=== PATIENT | female | born 1945 | race Caucasian/White ===

== ENCOUNTER 2016-09-29 13:42 | Outpatient (CLI) | payer MEDICARE, OTHER | END 2016-09-29 13:43 | disposition home or self-care (01) | DX: Z12.31 Encounter for screening mammogram for malignant neoplasm of breast (principal); Z80.3 Family history of malignant neoplasm of breast ==

== ENCOUNTER 2017-09-27 08:29 | Outpatient (CLI) | payer MEDICARE, OTHER ==
[2017-09-27 10:41] LABS: ALBUMIN 3.9 g/dL (3.2-5.5); ALBUMIN/GLOBULIN RATIO 1.3 (1.0-2.2); ALKALINE PHOSPHATASE 64 IU/L (42-121); ALT ALANINE AMINOTRANSFERASE 15 IU/L (10-60); AST ASPARTATE AMINOTRANSFERASE 19 IU/L (10-42); BILIRUBIN,TOTAL 0.6 mg/dL (0.2-1.0); BUN - BLOOD UREA NITROGEN 15 mg/dL (6-20); CARBON DIOXIDE - CO2 28 mmol/L (21-32); CHLORIDE 101 mmol/L (101-111); CHOL/HDL RATIO 2.9 (<4.4); CHOLESTEROL 180 mg/dL; CREATININE 0.6 mg/dL (0.4-1.0); GFR - MDRD 98 (>89); GLUCOSE 110 mg/dL (70-100); HDL CHOLESTEROL 62 mg/dL; LDL CHOLESTEROL,CALCULATED 107 mg/dL; LDL/HDL RATIO 1.7 (<4.4); SODIUM 137 mmol/L (135-145); VLDL CHOLESTEROL 11 mg/dL
== END 2017-09-27 08:30 | disposition home or self-care (01) ==
LOC: LAB.F 08:29
PROVIDERS: ATTEND Internal Medicine
DX: E78.5 Hyperlipidemia, unspecified (principal); J30.2 Other seasonal allergic rhinitis; M81.0 Age-related osteoporosis without current pathological fracture
CPT/HCPCS: 36415; 80053; 80061; 83721; 84443

== ENCOUNTER 2017-11-09 14:41 | Outpatient (CLI) | payer MEDICARE, OTHER ==
--- NOTE | 2017-11-13 16:55 | DEXA Report ---
DEXA: 11/09/2017 CLINICAL INDICATION: Osteoporosis. TECHNIQUE: Dual energy x-ray absorptiometry (DXA) was performed on a [employer] system. Regions measured are the AP spine, femoral neck, and, if needed, forearm. COMPARISON: None. In accordance with the International Society for Clinical Densitometry (ISCD) guidelines, data from previous exams may be reanalyzed using current recommendations and techniques. This is done to allow a more accurate basis for comparison with the current study. FINDINGS Data for the lumbar spine is as follows: REGION BMD (g/cm/cm) T-SCORE Z-SCORE L1 0.782 -2.9 -0.9 L2 0.880 -2.7 -0.7 L3 0.921 -2.3 -0.3 L4 0.940 -2.2 -0.2 L1-L4 0.886 -2.5 -0.4 NOTE: All evaluable vertebrae are used for classification. Data for the hip is as follows: REGION BMD (g/cm/cm) T-SCORE Z-SCORE Neck 0.656 -2.7 -0.7 TOTAL 0.712 -2.4 -0.5 NOTE: The femoral neck or total proximal femur, whichever is lowest, is used for classification. IMPRESSION WHO CLASSIFICATION BASED ON THE INTERNATIONAL REFERENCE STANDARD IS OSTEOPOROSIS. FRACTURE RISK IS HIGH. RECOMMENDATION: Patients with diagnosis of osteoporosis or osteopenia should have regular bone mineral density assessment. For those eligible for Medicare, routine testing is allowed once every 2 years. Testing frequency can be increased for patients who have rapidly progressing disease or for those who are receiving medical therapy to restore bone mass. COMMENT World Health Organization (WHO) definitions for osteoporosis and osteopenia: NORMAL BMD: T-score at 1.0 or higher, fracture risk is low. OSTEOPENIA BMD: T-score between 1.0 and -2.5, fracture risk is increased. OSTEOPOROSIS BMD: T-score at 2.5 or lower, fracture risk high. National Osteoporosis Foundation recommends: 1. Obtain adequate dietary calcium (at least 1200 mg per day) and vitamin D (400 -800 international units per day). 2. Participate, as appropriate, in regular weightbearing and muscle- strengthening exercise. 3. Avoid tobacco use and reduce alcohol and caffeine intake. 4. For more detailed information see the website at www.NOF.org. TD: 11/09/2017 17:41 MTDD
== END 2017-11-09 14:42 | disposition home or self-care (01) ==
LOC: DI 14:41
PROVIDERS: ATTEND Internal Medicine
DX: M81.0 Age-related osteoporosis without current pathological fracture (principal)
CPT/HCPCS: 77080

== ENCOUNTER 2017-11-09 14:45 | Outpatient (CLI) | payer MEDICARE, OTHER ==
--- NOTE | 2017-11-10 14:01 | Mammography Report ---
DIGITAL SCREENING MAMMOGRAM: 11/09/2017 CLINICAL INDICATION: A 71-year-old with family history of breast cancer, history of late childbearing for screening. COMPARISON: 09/2016, 09/2015, 06/2013, 03/2012, 02/2011, 02/2010. TECHNIQUE: Routine CC and MLO projections and bilateral laterally exaggerated craniocaudal views were obtained of the breasts. FINDINGS: Parenchymal tissue within both breasts is heterogeneously dense, which may lower the sensitivity of mammography; however, there are no dominant masses, suspicious microcalcifications, or secondary signs of malignancy. In comparison to the previous studies, there are no significant changes. ASSESSMENT: NO MAMMOGRAPHIC EVIDENCE OF MALIGNANCY. NO SIGNIFICANT INTERVAL CHANGES. RECOMMENDATION: Screening mammography is recommended annually. BIRADS category 1 - negative. STANDARD QUALIFYING STATEMENTS: 1. This examination was reviewed with the aid of Computed-Aided Detection (CAD). 2. A negative or benign imaging report should not delay biopsy if clinically suspicious findings are present. Consider surgical consultation if warranted. More than 5% of cancers are not identified by imaging. 3. Dense breasts may obscure an underlying neoplasm. TD: 11/10/2017 14:00
== END 2017-11-09 14:46 | disposition home or self-care (01) ==
LOC: DI 14:45
PROVIDERS: ATTEND Internal Medicine
DX: Z12.31 Encounter for screening mammogram for malignant neoplasm of breast (principal); Z80.3 Family history of malignant neoplasm of breast
CPT/HCPCS: 77067

== ENCOUNTER 2019-03-11 09:40 | Outpatient (CLI) | payer MEDICARE, OTHER ==
[2019-03-11 17:58] LABS: BUN - BLOOD UREA NITROGEN 16 mg/dL (6-20); CALCIUM 9.2 mg/dL (8.5-10.3); CARBON DIOXIDE - CO2 29 mmol/L (21-32); CHLORIDE 104 mmol/L (101-111); CHOL/HDL RATIO 2.5 (<4.4); CHOLESTEROL 212 mg/dL; CREATININE 0.6 mg/dL (0.4-1.0); GFR - MDRD 97 (>89); GLUCOSE 97 mg/dL (70-100); HDL CHOLESTEROL 86 mg/dL; LDL CHOLESTEROL,CALCULATED 114 mg/dL; LDL/HDL RATIO 1.3 (<4.4); SODIUM 140 mmol/L (135-145); VLDL CHOLESTEROL 12 mg/dL
== END 2019-03-11 09:41 | disposition home or self-care (01) ==
LOC: LAB.S 09:40
PROVIDERS: ATTEND Internal Medicine
DX: Z13.6 Encounter for screening for cardiovascular disorders (principal)
CPT/HCPCS: 36415; 80048; 80061; 83721

== ENCOUNTER 2020-06-19 09:13 | Outpatient (CLI) | payer MEDICARE, OTHER ==
[2020-06-19 15:40] LABS: BASOPHILS % (AUTO) 0.9 %; EOSINOPHILS # (AUTO) 0.1 10^3/uL (0.0-0.7); HGB - HEMOGLOBIN 12.8 g/dL (12.0-16.0); LYMPHOCYTES # (AUTO) 1.6 10^3/uL (1.5-3.5); LYMPHOCYTES % (AUTO) 34.1 %; MEAN CORPUSCULAR HGB CONC 31.7 g/dL (32.0-36.0); MEAN PLATELET VOLUME 10.2 fL (7.9-10.8); MONOCYTES # (AUTO) 0.5 10^3/uL (0.0-1.0); MONOCYTES % (AUTO) 11.6 %; NEUTROPHILS # (AUTO) 2.3 10^3/uL (1.5-6.6); NEUTROPHILS % (AUTO) 50.7 %; PLT - PLATELET COUNT 301 10^3/uL (130-450); RED CELL DISTRIBUTION WIDTH 12.5 % (12.0-15.0); WHITE BLOOD COUNT 4.6 x10^3/uL (4.8-10.8)
[2020-06-19 15:56] LABS: ALBUMIN 4.4 g/dL (3.2-5.5); ALBUMIN/GLOBULIN RATIO 1.5 (1.0-2.2); ALKALINE PHOSPHATASE 63 IU/L (42-121); ALT ALANINE AMINOTRANSFERASE 15 IU/L (10-60); AST ASPARTATE AMINOTRANSFERASE 19 IU/L (10-42); BILIRUBIN,TOTAL 0.8 mg/dL (0.2-1.0); BUN - BLOOD UREA NITROGEN 17 mg/dL (6-20); CALCIUM 9.6 mg/dL (8.5-10.3); CARBON DIOXIDE - CO2 28 mmol/L (21-32); CHLORIDE 102 mmol/L (101-111); CHOL/HDL RATIO 2.4 (<4.4); CHOLESTEROL 207 mg/dL; CREATININE 0.6 mg/dL (0.4-1.0); GLUCOSE 95 mg/dL (70-100); HDL CHOLESTEROL 87 mg/dL; LDL CHOLESTEROL,CALCULATED 108 mg/dL; LDL/HDL RATIO 1.2 (<4.4); SODIUM 139 mmol/L (135-145); TOTAL PROTEIN 7.3 g/dL (6.7-8.2); VLDL CHOLESTEROL 12 mg/dL
[2020-06-19 19:58] LABS: HEMOGLOBIN A1c% 5.4 % (4.27-6.07)
== END 2020-06-19 09:14 | disposition home or self-care (01) ==
LOC: LAB.S 09:13
PROVIDERS: ATTEND Family Medicine
DX: I49.1 Atrial premature depolarization (principal); K21.9 Gastro-esophageal reflux disease without esophagitis; R73.9 Hyperglycemia, unspecified
CPT/HCPCS: 36415; 80053; 80061; 83036; 83721; 84443; 85025

== ENCOUNTER 2020-08-12 13:04 | Outpatient (CLI) | payer MEDICARE, OTHER ==
--- NOTE | 2020-08-13 09:00 | Mammography Report ---
BILATERAL DIGITAL SCREENING MAMMOGRAM 3D/2D WITH EXAGGERATED CC: 08/12/2020 CLINICAL: Routine screening. Comparison is made to exams dated: 11/09/2017 mammogram, 09/29/2016 mammogram, 09/16/2015 mammogram, and 06/17/2013 mammogram - [facility]. The tissue of both breasts is predominantly fat ty. No significant masses, calcifications, or other findings are seen in either breast. There has been no significant interval change. IMPRESSION: NEGATIVE There is no mammographic evidence of malignancy. A 1 year screening mammogram is recommended. This exam was interpreted at Station ID: [id number]. NOTE: For mammograms, a report in lay terms will be sent to the patient. Approximately 15% of breast malignancies will not be visualized mammographically. In the management of a palpable breast mass, a negative mammogram must not discourage biopsy of a clinically suspicious lesion. Electronically Signed By: Cm Louie M.D., jr/gloria:08/12/2020 17:01:35 ACR BI-RADS Category 1: Negative 3341F PARENCHYMAL PATTERN: (F) - The breast(s) demonstrate(s) diffuse fatty replacement. BI-RADS CATEGORY: (1) - 1 RECOMMENDATION: (ANNUAL) - Recommend routine annual screening mammography. [id number] 1 year screening LATERALITY: (B)
== END 2020-08-12 13:05 | disposition home or self-care (01) ==
LOC: DI.S 13:04
PROVIDERS: ATTEND Family Medicine
DX: Z12.31 Encounter for screening mammogram for malignant neoplasm of breast (principal)

== ENCOUNTER 2021-11-10 09:34 | Outpatient (CLI) | payer MEDICARE, OTHER ==
[2021-11-10 15:09] LABS: BASOPHILS % (AUTO) 1.1 %; EOSINOPHILS # (AUTO) 0.1 10^3/uL (0.0-0.7); EOSINOPHILS % (AUTO) 2.4 %; HCT - HEMATOCRIT 36.1 % (37.0-47.0); HGB - HEMOGLOBIN 11.8 g/dL (12.0-16.0); LYMPHOCYTES # (AUTO) 1.1 10^3/uL (1.5-3.5); LYMPHOCYTES % (AUTO) 28.9 %; MEAN CORPUSCULAR HGB CONC 32.7 g/dL (32.0-36.0); MEAN CORPUSCULAR VOLUME 97.8 fL (81.0-99.0); MEAN PLATELET VOLUME 9.9 fL (7.9-10.8); MONOCYTES # (AUTO) 0.4 10^3/uL (0.0-1.0); MONOCYTES % (AUTO) 11.7 %; NEUTROPHILS # (AUTO) 2.1 10^3/uL (1.5-6.6); NEUTROPHILS % (AUTO) 55.9 %; PLT - PLATELET COUNT 307 10^3/uL (130-450); RED BLOOD COUNT 3.69 10^6/uL (4.20-5.40); RED CELL DISTRIBUTION WIDTH 13.2 % (12.0-15.0); WHITE BLOOD COUNT 3.8 x10^3/uL (4.8-10.8)
[2021-11-10 15:42] LABS: ALBUMIN 3.8 g/dL (3.2-5.5); ALBUMIN/GLOBULIN RATIO 1.5 (1.0-2.2); ALKALINE PHOSPHATASE 54 IU/L (42-121); ALT ALANINE AMINOTRANSFERASE 15 IU/L (10-60); AST ASPARTATE AMINOTRANSFERASE 21 IU/L (10-42); BILIRUBIN,TOTAL 0.8 mg/dL (0.2-1.0); BUN - BLOOD UREA NITROGEN 17 mg/dL (6-20); CALCIUM 9.3 mg/dL (8.5-10.3); CARBON DIOXIDE - CO2 30 mmol/L (21-32); CHLORIDE 100 mmol/L (101-111); CHOL/HDL RATIO 2.4 (<4.4); CHOLESTEROL 209 mg/dL; CREATININE 0.7 mg/dL (0.4-1.0); GFR - MDRD 81 (>89); GLUCOSE 96 mg/dL (70-100); HDL CHOLESTEROL 86 mg/dL; LDL CHOLESTEROL,CALCULATED 111 mg/dL; LDL/HDL RATIO 1.3 (<4.4); POTASSIUM 4.2 mmol/L (3.5-5.0); SODIUM 136 mmol/L (135-145); TOTAL PROTEIN 6.4 g/dL (6.7-8.2); TRIGLYCERIDES 60 mg/dL; VLDL CHOLESTEROL 12 mg/dL
[2021-11-10 16:24] LABS: THYROID STIMULATING HORMONE 1.9 uIU/mL (0.34-5.60)
== END 2021-11-10 09:35 | disposition home or self-care (01) ==
LOC: LAB.S 09:34
PROVIDERS: ATTEND Family Medicine
DX: Z00.00 Encounter for general adult medical examination without abnormal findings (principal)
CPT/HCPCS: 36415; 80053; 80061; 83721; 84443; 85025

== ENCOUNTER 2021-11-12 12:47 | Outpatient (CLI) | payer MEDICARE, OTHER ==
[2021-11-12 13:27] LABS: ABSOLUTE RETICS # AUTO 0.043 10^6/uL (0.020-0.110); BASOPHILS % (AUTO) 0.8 %; EOSINOPHILS # (AUTO) 0.1 10^3/uL (0.0-0.7); EOSINOPHILS % (AUTO) 1.8 %; HCT - HEMATOCRIT 37.5 % (37.0-47.0); HGB - HEMOGLOBIN 12.4 g/dL (12.0-16.0); LYMPHOCYTES # (AUTO) 1.4 10^3/uL (1.5-3.5); LYMPHOCYTES % (AUTO) 27.5 %; MEAN CORPUSCULAR HGB CONC 33.1 g/dL (32.0-36.0); MEAN CORPUSCULAR VOLUME 96.9 fL (81.0-99.0); MONOCYTES # (AUTO) 0.6 10^3/uL (0.0-1.0); MONOCYTES % (AUTO) 10.9 %; NEUTROPHILS % (AUTO) 58.8 %; PLT - PLATELET COUNT 293 10^3/uL (130-450); RED BLOOD COUNT 3.87 10^6/uL (4.20-5.40); RED CELL DISTRIBUTION WIDTH 13.1 % (12.0-15.0); WHITE BLOOD COUNT 5.1 x10^3/uL (4.8-10.8)
--- NOTE | 2021-11-12 13:35 | DEXA Report ---
PROCEDURE: Dexa Spine and/or Hip INDICATIONS: POST MENOPAUSAL TECHNIQUE: Dual energy x-ray absorptiometry (DXA) was performed on a [employer]. Regions measur ed are the AP Spine, femoral neck, and if needed forearm. COMPARISON: DEXA, 11/09/2017. FINDINGS: Lumbar Spine: Bone Mineral Density 0.878 g/cm/cm,T score -2.5, osteoporotic. Left Hip: Bone Mineral Density 0.734 g/cm/cm,T score -2.2, osteopenic. Left Femoral Neck: Bone Mineral Density 0.666 g/cm/cm, T score -2.7, osteoporotic. (T score greater or equal to -1.0: NORMAL) (T score from -1.1 to -2.4: OSTEOPENIA) (T score less than or equal to -2.5 to: OSTEOPOROSIS) Impression: Based on WHO criteria, the patient has osteoporosis. Compared with the last exam dated 11/09/2017, the re is no statistically significant change in the patient's bone mineral density. Patients with diagnosis of osteoporosis or osteopenia should have regular bone mineral density assess ment. For those eligible for Medicare, routine testing is allowed once every 2 years. Testing frequ ency can be increased for patients who have rapidly progressing disease or for those who are receivin g medical therapy to restore bone mass. Reviewed by: Michael Henriquez MD on 11/12/2021 1:34 PM PDT Approved by: Michael Henriquez MD on 11/12/2021 1:34 PM PDT Station ID: [id number]
[2021-11-12 14:00] LABS: FERRITIN 7.1 ng/mL (11.0-306.8)
[2021-11-12 14:02] LABS: % IRON SATURATION 28 % (20-50); IRON 132 ug/dL (28-170); TOTAL IRON BINDING CAPACITY 476 ug/dL (250-450); TRANSFERRIN 340 mg/dL (192-382)
[2021-11-12 14:04] LABS: FOLATE 17.1 ng/mL (5.90 - >24.8)
== END 2021-11-12 12:48 | disposition home or self-care (01) ==
LOC: DI 12:47
PROVIDERS: ATTEND Family Medicine
DX: Z78.0 Asymptomatic menopausal state (principal); M81.0 Age-related osteoporosis without current pathological fracture; D64.9 Anemia, unspecified
CPT/HCPCS: 36415; 82607; 82728; 82746; 83540; 84466; 85025; 85045

== ENCOUNTER 2021-11-15 08:00 | Outpatient (CLI) | payer MEDICARE, OTHER | END 2021-11-15 23:59 | disposition home or self-care (01) | LOC: LAB.R 08:00 | PROVIDERS: ATTEND Family Medicine | DX: D64.9 Anemia, unspecified (principal) | CPT/HCPCS: 82270 ==

== ENCOUNTER 2021-11-30 10:59 | Outpatient (CLI) | payer MEDICARE, OTHER ==
--- NOTE | 2021-12-01 13:41 | Mammography Report ---
BILATERAL DIGITAL SCREENING MAMMOGRAM 3D/2D WITH EXAGGERATED CC: 11/30/2021 CLINICAL: Routine screening. Family history of breast cancer. Comparison is made to exams dated: 08/12/2020 mammogram, 11/09/2017 mammogram, 09/29/2016 mammogram, an d 09/16/2015 mammogram - [facility]. The tissue of both breasts is extremely dense, which lowers the sensitivity of mammography. There are benign vascular calcifications in both breasts. No significant masses, calcifications, or other findings are seen in either breast. There has been no significant interval change. IMPRESSION: BENIGN There is no mammographic evidence of malignancy. A 1 year screening mammogram is recommended. This exam was interpreted at Station ID: [id number]. NOTE: For mammograms, a report in lay terms will be sent to the patient. Approximately 15% of breast malignancies will not be visualized mammographically. In the management of a palpable breast mass, a negative mammogram must not discourage biopsy of a clinically suspicious lesion. Electronically Signed By: Kaylen guo/gloria:11/30/2021 17:53:57 ACR BI-RADS Category 2: Benign Finding(s) 3342F PARENCHYMAL PATTERN: (VD) - The breast(s) demonstrate(s) extremely dense parenchyma, limiting the sen sitivity of mammography. BI-RADS CATEGORY: (2) - 2 RECOMMENDATION: (ANNUAL) - Recommend routine annual screening mammography. [id number] 1 year screening LATERALITY: (B)
== END 2021-11-30 11:00 | disposition home or self-care (01) ==
LOC: DI.S 10:59
PROVIDERS: ATTEND Family Medicine
DX: Z12.31 Encounter for screening mammogram for malignant neoplasm of breast (principal); Z80.3 Family history of malignant neoplasm of breast

== ENCOUNTER 2022-11-10 11:30 | Outpatient (CLI) | payer MEDICARE, OTHER | END 2022-11-10 11:45 | disposition home or self-care (01) | LOC: LAB.N 11:30 | PROVIDERS: ATTEND Specialist | DX: R30.0 Dysuria (principal) | CPT/HCPCS: 87086; 87181 ==

== ENCOUNTER 2022-12-20 13:04 | Outpatient (CLI) | payer MEDICARE, OTHER ==
--- NOTE | 2022-12-21 10:07 | Mammography Report ---
BILATERAL DIGITAL SCREENING MAMMOGRAM 3D/2D WITH EXAGGERATED CC: 12/20/2022 CLINICAL: Routine screening. Family history of breast cancer. Comparison is made to exams dated: 11/30/2021 mammogram, 08/12/2020 mammogram, and 11/09/2017 mammogram - [facility]. Both breasts are extremely dense, which lowers the sensitivity of mammography (category d />75% gland ular tissue). There are benign vascular calcifications in both breasts. No significant masses, calcifications, or other findings are seen in either breast. There has been no significant interval change. IMPRESSION: BENIGN There is no mammographic evidence of malignancy. A 1 year screening mammogram is recommended. Based on the Tyrer Cuzick model (a risk assessment model) the patients lifetime risk is 18.3% and he r 10 year risk is 0.0%. According to the ACR, ACS, and NCCN guidelines, an annual breast MRI exam guru ng with mammogram is recommended if the patients lifetime risk is 20% or greater. This exam was interpreted at Station ID: [id number]. NOTE: For mammograms, a report in lay terms will be sent to the patient. Approximately 15% of breast malignancies will not be visualized mammographically. In the management of a palpable breast mass, a negative mammogram must not discourage biopsy of a clinically suspicious lesion. Electronically Signed By: Kaylen guo/gloria:12/20/2022 17:20:02 letter sent: No_Letter ACR BI-RADS Category 2: Benign Finding(s) 3342F PARENCHYMAL PATTERN: (VD) - The breast(s) demonstrate(s) extremely dense parenchyma, limiting the sen sitivity of mammography. BI-RADS CATEGORY: (2) - 2 Mammogram [id number] 1 year screening LATERALITY: (B)
== END 2022-12-20 13:05 | disposition home or self-care (01) ==
LOC: DI.S 13:04
DX: Z12.31 Encounter for screening mammogram for malignant neoplasm of breast (principal); Z80.3 Family history of malignant neoplasm of breast

== ENCOUNTER 2023-03-01 09:23 | Outpatient (CLI) | payer MEDICARE, OTHER | END 2023-03-01 09:24 | disposition home or self-care (01) | LOC: LAB.S 09:23 | PROVIDERS: ATTEND Internal Medicine | DX: Z53.9 Procedure and treatment not carried out, unspecified reason (principal) | CPT/HCPCS: 36415; 80053; 80061; 81001; 81003; 82306; 83036; 83721; 84443; 85025; 86225; 86235; 87086 ==

== ENCOUNTER 2023-03-01 10:24 | Outpatient (CLI) | payer MEDICARE, OTHER | END 2023-03-01 10:25 | disposition short-term general hospital (02) | LOC: EMS 10:24 | DX: R07.9 Chest pain, unspecified (principal); R06.00 Dyspnea, unspecified; R61 Generalized hyperhidrosis; R42 Dizziness and giddiness; R56.9 Unspecified convulsions | CPT/HCPCS: A0425; A0429 ==

== ENCOUNTER 2023-11-26 20:21 | Outpatient (CLI) | payer MEDICARE, OTHER | END 2023-11-26 23:59 | disposition left against medical advice (07) | LOC: EMS 20:21 | DX: J34.89 Other specified disorders of nose and nasal sinuses (principal); R22.0 Localized swelling, mass and lump, head; R06.02 Shortness of breath; Z98.890 Other specified postprocedural states ==

== ENCOUNTER 2023-11-26 21:19 | Emergency (ER) | payer MEDICARE, OTHER ==
--- NOTE | 2023-11-26 22:49 | ED Physician Documentation ---
PD HPI DYSPNEA - Stated complaint Stated Complaint: POST OP SOA - Chief complaint Chief Complaint: Resp - History obtained from History obtained from: Patient, Family - Additional information Additional information: Patient sustained a fall on November 15, causing multiple fractures including mandibular fracture. She underwent surgical repair of the mandibular fracture on November 23. Currently, in her postoperative state, she is not able to open her mouth and is taking nutrition through a Yuen catheter that she places into the cheek of her mouth intermittently (several times per day). She had right n are packing placed intraoperatively due to epistaxis. Her chief complaint and concern is that since 4 PM today, she has had increasing difficulty breathing through her left nare. She has been instructed to not cough or blow her nose. PD PAST MEDICAL HISTORY - Past Medical History Past Medical History: Yes Cardiovascular: Hypertension Musculoskeletal: Osteoporosis, Other Other Past Medical History: R radial fx/dislocation= reduced recently. - Past Surgical History Past Surgical History: Yes Ortho: Other - Present Medications Home Medications: Ambulatory Orders Medication Instructions Recorded Confirmed Acetaminophen 640 mg PO Q6HR 11/27/23 11/27/23 Chlorhexidine [Peridex] 15 ml PO BID 11/27/23 11/27/23 Dorzolamide/Timolol Ophth Soln 1 drops EACHEYE BID 11/27/23 11/27/23 [Cosopt] Ibuprofen [Children's Motrin] 600 mg PO Q6HR 11/27/23 11/27/23 Oxycodone HCl See Rx Instructions .ROUTE .COMPLEX 11/27/23 11/27/23 - Allergies Allergies/Adverse Reactions: Allergies Allergy/AdvReac Type Severity Reaction Status Date / Time Penicillins Allergy Rash Verified 11/26/23 21:33 - Social History Does the pt smoke?: No Smoking Status: Never smoker Does the pt drink ETOH?: No Does the pt have substance abuse?: No - Immunizations Immunizations are current?: Yes - POLST Patient has POLST: No PD ED PE NORMAL - Vitals Vital signs reviewed: Yes - General General: Alert and oriented X 3, No acute distress, Well developed/nourished - HEENT HEENT: Other (moderate facial swelling and mild bruising. right nare has packing in place. left nare partially occluded with thick, dried mucous) Results - Vitals Vitals: Vital Signs - 24 hr 11/26/23 11/27/23 11/27/23 21:25 00:10 01:56 Temperature 36.3 C L Heart Rate 104 H 95 80 Respiratory 20 16 16 Rate Blood Pressure 155/102 H 148/93 H 86/66 L O2 Saturation 96 99 97 11/27/23 11/27/23 11/27/23 02:00 02:05 02:10 Temperature Heart Rate 84 83 79 Respiratory 16 16 16 Rate Blood Pressure 128/77 132/72 H 138/60 H O2 Saturation 97 97 97 11/27/23 11/27/23 02:30 03:00 Temperature Heart Rate 78 79 Respiratory 16 15 Rate Blood Pressure 124/68 120/67 O2 Saturation 96 99 Oxygen O2 Source Room air PD Medical Decision Making - ED course Complexity details: considered differential, d/w patient, d/w family ED course: Under direct (otoscopic) visualization, I removed the mucous plug from the left nare using forceps. She immediately reported feeling she was able to breathe much better through this nare. She has a bottle of oxymetazoline given to her post-operatively which she was to use for epistaxis. After I removed the mucous plug, I note the left nare's mucous membranes appear boggy and thus I had her spray two sprays of the oxymetazoline in the left nare which further improved her breathing through the left nare. She is subsequently d/c home with return precautions reviewed. Departure - Departure Disposition: 01 Home, Self Care Clinical Impression: Dyspnea Qualifiers: Dyspnea type: unspecified Qualified Code(s): R06.00 - Dyspnea, unspecified Condition: Good Instructions: ED Dyspnea Shortness of Breath Comments: After I removed the thick mucus in your left nare, followed by use of your nasal spray, you are indicating that you are now able to breathe adequately through the left nare. You were given 1 liter of normal saline through the IV to help rehydrate. Discharge Date/Time: 11/27/23 03:30
[2023-11-26] MEDS: ACETAMINOPHEN 325 MG TABLET PO STA (23:35)
[2023-11-26] MEDS: SODIUM CHLORIDE 0.9% 1,000 ML IV STA (23:35)
[2023-11-26] MEDS: ACETAMINOPHEN 1,000 MG/100 ML 1,000 MG/100 ML BAG IV STA (23:35)
[2023-11-27] MEDS: SODIUM CHLORIDE 0.9% 1,000 ML IV STA (02:10)
[2023-11-27] MEDS: ONDANSETRON 4 MG/2 ML VIAL IVP STA (02:13)
[2023-11-27 03:33] VITALS: BP 120/67; O2SAT 99
== END 2023-11-27 03:30 | disposition home or self-care (01) ==
LOC: ED 21:19 → UNDOADMOB 23:02 → MS2 23:02 → ED 11-27 03:30
DX: R06.00 Dyspnea, unspecified (principal); I10 Essential (primary) hypertension; Z98.890 Other specified postprocedural states
CPT/HCPCS: 36415; 99283; J0131

== ENCOUNTER 2024-01-31 08:22 | Outpatient (CLI) | payer MEDICARE, OTHER ==
[2024-01-31 21:26] LABS: ESTIMATED AVERAGE GLUCOSE 97 mg/dL (70-100)
[2024-02-01 05:14] LABS: VITAMIN D 25-HYDROXY 65.4 ng/mL (30.0-100.0)
== END 2024-01-31 08:23 | disposition home or self-care (01) ==
LOC: LAB.S 08:22
PROVIDERS: ATTEND Internal Medicine
DX: Z00.00 Encounter for general adult medical examination without abnormal findings (principal); I10 Essential (primary) hypertension; R73.9 Hyperglycemia, unspecified; M81.0 Age-related osteoporosis without current pathological fracture; I73.00 Raynaud's syndrome without gangrene
CPT/HCPCS: 36415; 82306; 83036; 86038

== ENCOUNTER 2024-02-09 08:30 | Outpatient (CLI) | payer MEDICARE, OTHER ==
[2024-02-09 08:41] LABS: EOSINOPHILS # (AUTO) 0.1 10^3/uL (0.0-0.7); EOSINOPHILS % (AUTO) 3.1 %; HCT - HEMATOCRIT 38.4 % (37.0-47.0); LYMPHOCYTES # (AUTO) 1.5 10^3/uL (1.5-3.5); LYMPHOCYTES % (AUTO) 38.8 %; MEAN CORPUSCULAR HEMOGLOBIN 30.6 pg (27.0-31.0); MEAN CORPUSCULAR HGB CONC 31.3 g/dL (32.0-36.0); MONOCYTES # (AUTO) 0.6 10^3/uL (0.0-1.0); MONOCYTES % (AUTO) 14.2 %; NEUTROPHILS # (AUTO) 1.7 10^3/uL (1.5-6.6); NEUTROPHILS % (AUTO) 42.6 %; PLT - PLATELET COUNT 318 10^3/uL (130-450); RED BLOOD COUNT 3.92 10^6/uL (4.20-5.40); RED CELL DISTRIBUTION WIDTH 12.4 % (12.0-15.0); WHITE BLOOD COUNT 3.9 x10^3/uL (4.8-10.8)
[2024-02-09 09:14] LABS: THYROID STIMULATING HORMONE 2.16 uIU/mL (0.34-5.60)
[2024-02-09 09:28] LABS: ALBUMIN 4.7 g/dL (3.2-5.5); ALBUMIN/GLOBULIN RATIO 1.9 (1.0-2.2); ALKALINE PHOSPHATASE 66 IU/L (42-121); ALT ALANINE AMINOTRANSFERASE 12 IU/L (10-60); AST ASPARTATE AMINOTRANSFERASE 17 IU/L (10-42); BILIRUBIN,TOTAL 0.9 mg/dL (0.2-1.0); BUN - BLOOD UREA NITROGEN 16 mg/dL (6-20); CALCIUM 10.4 mg/dL (8.5-10.3); CARBON DIOXIDE - CO2 32 mmol/L (21-32); CHLORIDE 102 mmol/L (101-111); CHOL/HDL RATIO 2.6 (<4.4); CHOLESTEROL 226 mg/dL; CREATININE 0.6 mg/dL (0.6-1.3); GFR - MDRD 96 (>89); GLUCOSE 94 mg/dL (74-104); HDL CHOLESTEROL 88 mg/dL; LDL CHOLESTEROL,CALCULATED 123 mg/dL; LDL/HDL RATIO 1.4 (<4.4); POTASSIUM 4.5 mmol/L (3.5-4.5); SODIUM 138 mmol/L (135-145); TOTAL PROTEIN 7.2 g/dL (6.4-8.9); TRIGLYCERIDES 76 mg/dL; VLDL CHOLESTEROL 15 mg/dL
== END 2024-02-09 08:31 | disposition home or self-care (01) ==
LOC: LAB 08:30
PROVIDERS: ATTEND Internal Medicine
DX: Z00.00 Encounter for general adult medical examination without abnormal findings (principal); I10 Essential (primary) hypertension; R73.9 Hyperglycemia, unspecified
CPT/HCPCS: 36415; 80053; 80061; 83721; 84443; 85025

== ENCOUNTER 2024-03-06 10:51 | Outpatient (CLI) | payer MEDICARE, OTHER ==
--- NOTE | 2024-03-08 15:34 | Mammography Report ---
BILATERAL DIGITAL SCREENING MAMMOGRAM 3D/2D: 03/06/2024 CLINICAL: Routine screening. Comparison is made to exams dated: 12/20/2022 mammogram, 11/30/2021 mammogram, 08/12/2020 mammogram, 10/16 mammogram, 09/29/2016 mammogram, and 09/16/2015 mammogram - [facility]. Both breasts are extremely dense, which lowers the sensitivity of mammography (category d />75% gland ular tissue). No significant masses, calcifications, or other findings are seen in either breast. There has been no significant interval change. IMPRESSION: NEGATIVE There is no mammographic evidence of malignancy. A 1 year screening mammogram is recommended. Based on the Tyrer Cuzick model (a risk assessment model) the patient's lifetime risk is 13.8% and he r 10 year risk is 0.0%. According to the ACR, ACS, and NCCN guidelines, an annual breast MRI exam guru ng with mammogram is recommended if the patient's lifetime risk is 20% or greater. This exam was interpreted at Station ID: [id number]. NOTE: For mammograms, a report in lay terms will be sent to the patient. Approximately 15% of breast malignancies will not be visualized mammographically. In the management of a palpable breast mass, a negative mammogram must not discourage biopsy of a clinically suspicious lesion. Electronically Signed By: Lisa Canseco M.D., Ph.D. eb/gloria:03/07/2024 10:28:50 letter sent: No_Letter ACR BI-RADS Category 1: Negative 3341F PARENCHYMAL PATTERN: (VD) - The breast(s) demonstrate(s) extremely dense parenchyma, limiting the sen sitivity of mammography. BI-RADS CATEGORY: (1) - 1 RECOMMENDATION: (ANNUAL) - Recommend routine annual screening mammography. [id number] 1 year screening LATERALITY: (B)
== END 2024-03-06 10:52 | disposition home or self-care (01) ==
LOC: DI 10:51
PROVIDERS: ATTEND Internal Medicine
DX: Z12.31 Encounter for screening mammogram for malignant neoplasm of breast (principal); R92.343 Mammographic extreme density, bilateral breasts

== ENCOUNTER 2024-04-01 13:24 | Outpatient (CLI) | payer MEDICARE, OTHER ==
--- NOTE | 2024-04-02 15:52 | DEXA Report ---
PROCEDURE: Dexa Spine and/or Hip INDICATIONS: OSTEOPOROSIS TECHNIQUE: Dual energy x-ray absorptiometry (DEXA) was performed in the regions detailed below. COMPARISON: 11/12/2021 FINDINGS: Lumbar Spine: Bone Mineral Density 0.893 g/cm/cm,T score -2.4. Previously -2.5 Left Femoral Neck: Bone Mineral Density 0.650 g/cm/cm, T score -2.8. Previously -2.7 Left Total Hip: Bone Mineral Density 0.657 g/cm/cm,T score -2.8. Previously -2.2 (T score greater or equal to -1.0: NORMAL) (T score from -1.1 to -2.4: OSTEOPENIA) (T score less than or equal to -2.5 to: OSTEOPOROSIS) IMPRESSION: Worsening left femoral osteoporosis Patients with diagnosis of osteoporosis or osteopenia should have regular bone mineral density assess ment. For those eligible for Medicare, routine testing is allowed once every 2 years. Testing frequ ency can be increased for patients who have rapidly progressing disease or for those who are receivin g medical therapy to restore bone mass. Reviewed by: Edouard Stephens MD on 04/02/2024 2:50 PM ELIZABETH Approved by: Edouard Stephens MD on 04/02/2024 2:50 PM AKDT Station ID: [id number]
== END 2024-04-01 13:25 | disposition home or self-care (01) ==
LOC: DI 13:24
PROVIDERS: ATTEND Internal Medicine
DX: M81.0 Age-related osteoporosis without current pathological fracture (principal)